=== PATIENT | male | born 1960 | race Caucasian/White ===

== ENCOUNTER → 2017-10-30 | Emergency (ER) | payer OTHER ==
[~2017-10-30] VITALS: Ht 180.3 cm; Wt 83.9 kg
[~2017-10-30] MED LIST: CATAPRES0.3 M1 PO; NEURONTIN300 MG PO; NEURONTIN800 MG PO
== END | disposition left against medical advice (07) ==
LOC: ER 22:19
DX: Z53.20 Procedure and treatment not carried out because of patient's decision for unspecified reasons (principal)